=== PATIENT | female | born 1980 ===

== ENCOUNTER 2023-06-06 23:45 | Emergency (ER) | payer OTHER ==
--- OUTSIDE RECORDS SUMMARY | 2023-06-06 23:47 | XMS REPORT | Continuity of Care Document ---
Author Name Unknown Address [address] [place] [address] [place], [place] [address]ect Address [address] [facility] [address] [place] [address] Care Team Providers Care Corporate Consultant Name Role Phone Unavailable Unavailable Unavailable Encounters Start Date/Time End Date/Time Encounter Type Admission Type Attending Clinicians Care Facility Care Department Encounter ID Source 2022-10-01 09:17:03 2022-10-01 09:17:03 Outpatient [facility] [id number] Kit Staton
[2023-06-07 00:20] LABS: Absolute Lymphocytes (CBC) 2.8 K/uL (0.7-4.9); Hematocrit 39.7 % (36.0-45.0); Lymphocytes % 22.2 % (15.3-44.8); MPV 8.2 fL (7.6-11.3); Platelets 359 thou/uL (152-406); RBC Red Blood Cell Count 5.22 M/uL (3.86-4.86)
[2023-06-07 00:36] LABS: Bilirubin Total 0.4 mg/dL (0.2-1.0); Potassium 3.9 mEq/L (3.5-5.1)
[2023-06-07 00:53] LABS: Urine Bacteria 20-50 /HPF (<20); Urine Bilirubin NEGATIVE (Negative); Urine Blood 3+ (OVER) (Negative); Urine Clarity Extremely Turbid (Clear); Urine Color Yellow (Yellow); Urine Glucose NEGATIVE (Negative); Urine Mucus 4+ /HPF (None Seen); Urine Protein 1+ (Negative); Urine Urobilinogen Normal (Normal); Urine pH 5.5 (5.0-7.0)
--- NOTE | 2023-06-07 01:40 | ER ---
Nurse's Notes [facility] Name: Queta Ramsay Age: 43 yrs Sex: Female : 1980 Arrival Date: 06/06/2023 Time: 23:45 Bed 5 Private MD: Diagnosis: Low back pain;UTI/ Urinary tract infection, site not specified Presentation: 06/06 23:59 Chief complaint: Patient states: ride sided back pain that radiates to abdomen with as6 vomiting. Coronavirus screen: At this time, the client does not indicate any symptoms associated with coronavirus-19. Ebola Screen: No symptoms or risks identified at this time. Initial Sepsis Screen: Does the patient meet any 2 criteria? No. Patient's initial sepsis screen is negative. Does the patient have a suspected source of infection? No. Patient's initial sepsis screen is negative. Risk Assessment: Do you want to hurt yourself or someone else? Patient reports no desire to harm self or others. Onset of symptoms was June 05, 2023. 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 - Social history:: Smoking status: Patient reports the use of cigarette tobacco products, smokes one pack cigarettes per day. - Family history:: not pertinent. - Hospitalizations: : No recent hospitalization is reported. Screenin/16 00:06 [facility] ED Fall Risk Assessment (Adult) History of falling in the last 3 months, km8 including since admission No falls in past 3 months (0 pts) Confusion or Disorientation No (0 pts) Intoxicated or Sedated No (0 pts) Impaired Gait No (0 pts) Mobility Assist Device Used No (0 pt) Altered Elimination No (0 pt) Score/Fall Risk Level 0 - 2 = Low Risk Oriented to surroundings, Maintained a safe environment, Educated pt \T\ family on fall prevention, incl call for assistance when getting out of bed, Assessed \T\ reinforced patient's understanding of fall precautions. Abuse screen: Denies threats or abuse. Denies injuries from another. Nutritional screening: No deficits noted. Tuberculosis screening: No symptoms or risk factors identified. Assessment: 00:06 General: Appears in no apparent distress. uncomfortable, Behavior is calm, cooperative, km8 appropriate for age. Pain: Complains of pain in right mid back Pain radiates to abdomen Pain currently is 6 out of 10 on a pain scale. Is continuous. Neuro: Schaefer Agitation-Sedation Scale (RASS): 0 - Alert and Calm Level of Consciousness is awake, alert, obeys commands, Oriented to person, place, time, situation. Cardiovascular: Denies chest pain, shortness of breath, Capillary refill < 3 seconds Patient's skin is warm and dry. Respiratory: Airway is patent Respiratory effort is even, unlabored, Respiratory pattern is regular, symmetrical. GI: Abdomen is obese, Reports lower abdominal pain, nausea, vomiting. : No signs and/or symptoms were reported regarding the genitourinary system. EENT: No signs and/or symptoms were reported regarding the EENT system. Derm: No signs and/or symptoms reported regarding the dermatologic system. Skin is intact, Skin is dry, Skin is pink, warm \T\ dry. normal, Skin temperature is warm. Musculoskeletal: Circulation, motion, and sensation intact. Range of motion: intact in all extremities. 01:09 Reassessment: Patient appears in no apparent distress at this time. No changes from km8 previously documented assessment. Patient and/or family updated on plan of care and expected duration. Pain level reassessed. Patient is alert, oriented x 3, equal unlabored respirations, skin warm/dry/pink. Vital Signs: 06/06 23:58 BP 180 / 105; Pulse 100; Resp 20 S; Temp 97.6(TE); Pulse Ox 95% on R/A; Weight 206.3 kg as6 (M); Height 5 ft. 6 in. (R); Pain /; 06/07 00:15 Weight 206.3 kg (M); km8 06/06 23:58 Body Mass Index 73.41 (206.30 kg, 167.64 cm) as6 06/06 23:58 Pain Scale: Adult as6 Derick Coma Score: 00:06 Eye Response: spontaneous(4). Motor Response: obeys commands(6). Verbal Response: km8 oriented(5). Total: 15. ED Course: 06/06 23:50 Patient arrived in ED. gm2 23:50 David Boyer MD is Attending Physician. rn 23:58 Arm band placed on. as6 1216 00:01 Triage completed. as6 00:06 Patient has correct armband on for positive identification. Bed in low position. Call km8 light in reach. Side rails up X 1. Pulse ox on. NIBP on. 00:06 No provider procedures requiring assistance completed. Inserted saline lock: 20 gauge km8 in left antecubital area, using aseptic technique. Blood collected. Patient maintains SpO2 saturation greater than 95% on room air. 01:55 IV discontinued, intact, bleeding controlled, No redness/swelling at site. Pressure km8 dressing applied. 02:56 Provided Education on: d/c teaching. km8 Administered Medications: 01:52 Drug: Ciprofloxacin PO 500 mg PO once Route: PO; km8 02:58 Follow up: Response: Medication administered at discharge. km8 01:52 Drug: HYDROcodone-acetaminophen PO 5 mg-325 mg 1 tabs PO once Route: PO; km8 02:58 Follow up: Response: Medication administered at discharge. km8 Medication: 00:06 VIS not applicable for this client. km8 Outcome: 01:39 Discharge ordered by . rn 01:55 Condition: good km8 01:55 Discharged to home ambulatory, km8 01:55 Discharge instructions given to patient, Instructed on discharge instructions, follow up and referral plans. medication usage, Demonstrated understanding of instructions, follow-up care, medications, Prescriptions given X 3, 01:57 Patient left the ED. km8 Signatures: David Boyer MD MD rn Slawson, Ashby, RN RN as6 Adry Schneider gm2 Alina Jackson RN RN km8 Corrections: (The following items were deleted from the chart) 00:08 00:06 Pain: Complains of pain in right mid back Pain currently is 6 out of 10 on a pain km8 scale. Is continuous, km8 00:08 00:06 GI: No signs and/or symptoms were reported involving the gastrointestinal system. km8 km8 00:14 06/06 23:58 BP 180 / 105; Pulse 100bpm; Resp 20bpm; Spontaneous; Pulse Ox 95% RA; Temp as6 97.6F Temporal; 204.12 kg Reported; Height 5 ft. 6 in. Reported; BMI: 72.6; Pain 11/30, Adult; as6 06/07 02:56 01:55 Discharge instructions given to patient, Instructed on discharge instructions, km8 follow up and referral plans. medication usage, Demonstrated understanding of instructions, follow-up care, medications, Prescriptions given X 1, km8
--- NOTE | 2023-06-07 01:40 | EDPHYS ---
Physician Documentation [facility] Name: Queta Ramsay Age: 43 yrs Sex: Female : 1980 Arrival Date: 06/06/2023 Time: 23:45 Bed 5 Private MD: ED Physician David Boyer HPI: 06/06 23:59 This 43 yrs old Female presents to ER via Unassigned with complaints of Back Pain. rn 23:59 The patient presents with pain that is acute. The symptoms are located in the low back. rn Onset: The symptoms/episode began/occurred yesterday. The pain radiates to the abdomen. Associated signs and symptoms: Pertinent positives: none Pertinent negatives: abdominal pain, chest pain, dysuria, fever, hematuria, incontinence, nausea, numbness, tingling, urinary retention, vomiting, weakness. Modifying factors: The patient symptoms are alleviated by nothing, the patient symptoms are aggravated by any movement. Severity of symptoms: At their worst the symptoms were moderate, in the emergency department the symptoms have improved. The patient has experienced similar episodes in the past. The patient has not recently seen a physician. Patient reports right sided back pain, radiates around to the right flank. Has already had cholecystectomy. No fever. No diarrhea. No blood in stool. No trauma. No urinary symptoms. No chest pain or shortness of breath. No cough. Took a COVID test at home and was negative.. 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 - Social history:: Smoking status: Patient reports the use of cigarette tobacco products, smokes one pack cigarettes per day. - Family history:: not pertinent. - Hospitalizations: : No recent hospitalization is reported. ROS: 23:59 Constitutional: Negative for fever, chills, and weight loss, Neck: Negative for injury, rn pain, and swelling, Cardiovascular: Negative for chest pain, palpitations, and edema, Respiratory: Negative for shortness of breath, cough, wheezing, and pleuritic chest pain, Abdomen/GI: Negative for abdominal pain, nausea, vomiting, diarrhea, and constipation, Back: Positive for right back pain : Negative for injury, bleeding, discharge, and swelling, MS/Extremity: Negative for injury and deformity, Skin: Negative for injury, rash, and discoloration, Neuro: Negative for headache, weakness, numbness, tingling, and seizure, Exam: 23:59 Constitutional: This is a well developed, well nourished patient who is awake, alert, rn and in no acute distress. Ambulatory to room without difficulty or assistance. He is slightly winded when she gets to the room but morbidly obese. Head/Face: Normocephalic, atraumatic. ENT: No stridor Cardiovascular: Regular rate and rhythm. No pulse deficits. Respiratory: Mild tachypnea after walking to the room but subsides after rest. Abdomen/GI: Soft, nontender, no guarding or rebound Back: No spinal tenderness. No costovertebral tenderness. Skin: Warm, dry MS/ Extremity: Pulses equal, no cyanosis. Neuro: Awake and alert, GCS 15, normal gait equal strength throughout Vital Signs: 23:58 BP 180 / 105; Pulse 100; Resp 20 S; Temp 97.6(TE); Pulse Ox 95% on R/A; Weight 206.3 kg as6 (M); Height 5 ft. 6 in. (R); Pain 6/10; 06/07 00:15 Weight 206.3 kg (M); km8 06/06 23:58 Body Mass Index 73.41 (206.30 kg, 167.64 cm) as6 06/06 23:58 Pain Scale: Adult as6 Derick Coma Score: 00:06 Eye Response: spontaneous(4). Motor Response: obeys commands(6). Verbal Response: km8 oriented(5). Total: 15. MDM: 06/06 23:50 Patient medically screened. rn 06/07 00:02 ED course: Family member reports has been having left leg pain and compensating with rn the right side. Was using a cane and now the right side is hurting. Could be compensation and musculoskeletal from abnormal pelvic tilt. 01:36 Differential diagnosis: Pyelonephritis Ureterolithiasis UTI, back pain, radiculopathy. rn Data reviewed: vital signs, nurses notes, lab test result(s), and as a result, I will discharge patient. Counseling: I had a detailed discussion with the patient and/or guardian regarding the historical points, exam findings, and any diagnostic results supporting the discharge/admit diagnosis, lab results, the need for outpatient follow up, to return to the emergency department if symptoms worsen or persist or if there are any questions or concerns that arise at home. Special discussion: I discussed with the patient/guardian in detail that at this point there is no indication for admission to the hospital. It is understood, however, that if the symptoms persist or worsen the patient needs to return immediately for re-evaluation. ED course: Patient above CT limits for weight, had long conversation with her significant other and patient. Has mild elevation of WBC, signs of UTI and hematuria. No evidence of kidney failure. Unable to get a CT scan so we will have to treat with antibiotics and give return precautions. 06/06 23:57 Order name: CBC with Diff; Complete Time: 00:40 rn 06/06 23:57 Order name: CMP; Complete Time: 00:40 rn 06/06 23:57 Order name: Lipase; Complete Time: 00:40 rn 06/06 23:57 Order name: Urinalysis w/ reflexes; Complete Time: 01:21 rn 06/07 01:02 Order name: Urine Culture EDNH 06/06 23:57 Order name: IV Saline Lock; Complete Time: 00:06 rn 06/06 23:57 Order name: Labs collected and sent; Complete Time: 00:06 rn Administered Medications: 01:52 Drug: Ciprofloxacin PO 500 mg PO once Route: PO; km8 02:58 Follow up: Response: Medication administered at discharge. km8 01:52 Drug: HYDROcodone-acetaminophen PO 5 mg-325 mg 1 tabs PO once Route: PO; km8 02:58 Follow up: Response: Medication administered at discharge. km8 Disposition Summary: 06/07/23 01:39 Discharge Ordered Notes: Location: Home rn Problem: new rn Symptoms: have improved rn Condition: Stable rn Diagnosis - Low back pain rn - UTI/ Urinary tract infection, site not specified rn Followup: rn - With: Private Physician - When: As needed - Reason: Recheck today's complaints, Re-evaluation by your physician Discharge Instructions: - Discharge Summary Sheet rn - Acute Back Pain, Adult rn - Urinary Tract Infection, Adult rn Forms: - Medication Reconciliation Form rn - Thank You Letter rn - Antibiotic cornice maker - Prescription Opioid Use rn - Patient Portal Instructions rn - Leadership Thank You Letter rn Prescriptions: - Cipro 500 mg Oral Tablet - take 1 tablet ORAL route every 12 hours for 7 days; 14 tablet; Refills: 0, rn Product Selection Permitted - Cyclobenzaprine 10 mg Oral Tablet - take 1 tablet ORAL route every 8 hours As needed; 30 tablet; Refills: 0, rn Product Selection Permitted - Tramadol 50 mg Oral Tablet - take 1 tablet ORAL route every 8 hours as needed; 12 tablet; Refills: 0, rn Product Selection Permitted Signatures: Dispatcher [employer] EDMS David Boyer MD MD rn Slawson, Ashby RN RN as6 Alina Jackson RN RN km8 Corrections: (The following items were deleted from the chart) 00:18 06/06 23:57 Abdomen Pelvis W [id number].[id number] ordered. EDNH EDMS
[2023-06-07] MEDS ORDERED: CIPROFLOXACIN HCL 500 MG TAB ONE (01:41)
[2023-06-07] MEDS ORDERED: HYDROCODONE/APAP 5/325 MG TAB ONE (01:48)
[2023-06-07 06:28] VITALS: BP 180/105; TEMP 97.6; O2SAT 95
== END 2023-06-07 01:57 | disposition home or self-care (01) ==
LOC: ER 23:45
DX: N39.0 Urinary tract infection, site not specified (principal); E11.9 Type 2 diabetes mellitus without complications; F17.210 Nicotine dependence, cigarettes, uncomplicated
CPT/HCPCS: 36415; 81001; 99284